=== PATIENT | female | born 1965 | race Caucasian/White ===

== ENCOUNTER 2018-12-05 21:05 | Emergency (ER) | payer OTHER ==
[~2018-12-05] VITALS: Ht 154.9 cm; Wt 83.9 kg
[~2018-12-05 21:05] MED LIST: AUGMENTIN 875875 MG PO; CONTRAVE1 TER PO; FLEXERIL10 MG PO; Fioricet 325 MG1 TAB PO; HYDROCODONE BIT1 T12 PO; MOTRIN400 MG PO; MOTRIN800 MG PO; PREDNICOT20 MG PO; SYNTHROID0.112 MG PO; ULTRAM50 MG PO; ZOFRAN ODT4 MG SL
[2018-12-05] MEDS ORDERED: LIDODERM1 EACH T (23:58)
== END 2018-12-06 00:12 | disposition home or self-care (01) ==
LOC: ED 21:05
DX: B02.9 Zoster without complications (principal); M62.838 Other muscle spasm; Z79.899 Other long term (current) drug therapy